=== PATIENT | female | born 1995 | race African-American/Black ===

== ENCOUNTER 2019-06-03 20:20 | Emergency (ER) | payer OTHER, SELFPAY ==
[2019-06-03 20:25] VITALS: BP 121/70; PULSE 64; RESP 16; TEMP 36.7; O2SAT 98
--- NOTE | 2019-06-03 20:46 | ED.ABDPAIN ---
HPI - Abdominal Pain General Chief Complaint: Abdominal Pain Stated Complaint: headache,abd pain, diarrhea Time Seen by Provider: 06/03/19 20:44 Source: patient and RN notes reviewed Mode of arrival: ambulatory Limitations: no limitations History of Present Illness HPI narrative: A 24 y/o female presents to the ED with diffuse ABD pain since yesterday. She reports associated N/V/D, MENESES, lt facial tingling, and lt ear ache. She states that she has had one episode of emesis yesterday and one more today. She notes that her chest and stomach feels weird . She also notes that she has taken Ibuprofen but denies it alleviating her symptoms. She also denies any fevers, cough, SOB, nasal congestion, or rhinorrhea. MD elicited complaint: abdominal pain Pertinent past history: none Onset (ago): day(s) (yesterday) Location: diffuse Relieving factors: nothing Associated symptoms: nausea, vomiting (x2), diarrhea and other (MENESES, lt facial tingling, lt ear ache, and that his stomach and chest feels weird ) Related Data Allergies Allergy/AdvReac Type Severity Reaction Status Date / Time No Known Allergies Allergy Verified 06/03/19 20:28 Review of Systems Review of Systems: All systems reviewed & are unremarkable except as noted in HPI and below Constitutional: Constitutional: Denies fever(s) ENT: Denies nasal congestion, Denies nasal discharge and Reports other (lt ear ache) Cardiovascular: Cardiovascular: Reports other (chest feels weird ) Respiratory: Respiratory: Denies cough and Denies dyspnea Gastrointestinal: Gastrointestinal: Reports abdominal pain (diffuse), Reports diarrhea, Reports nausea, Reports vomiting (x2.) and Reports other (stomach feels weird ) Neurologic: Reports headache(s) and Reports tingling (lt facial) [facility] Past Medical History Medical History (Updated 06/04/19 @ 00:00 by Stephen Wang) Anemia Chauhan's palsy Cholelithiasis Gall stones Surgical History Surgical History History of cholecystectomy Social History Social History Smoking packs per day: 1 Smoking cigarettes per day: 20.0 Years smoked: 2 Smoking pack-years: 2.00 Smoking status: Current every day smoker Tobacco type: cigarettes Additional occupation/education comments: 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 Gender identity (if verbalized by the patient): Female Exam Const: General: healthy appearing and no acute distress Nutritional Appearance: obese HENMT: Mouth: Yes lip normal and Yes moist mucous membranes Eyes: Conjunctivae: conjunctivae normal Pupils: Equal, round and reactive pupils present Resp: Effort & Inspection: normal respiratory effort Auscultation: clear to auscultation bilaterally Cardio: Rate: regular rate Rhythm: regular rhythm Heart sounds: no murmurs GI: GI Palp: Yes Soft to palpation and No Tenderness to palpation present (GI) Auscultation: normal bowel sounds Back/Spine/Pelvis: Other: Full ROM. Skin: General skin exam: normal color, dry skin and other (warm) Neuro: General: patient oriented x3 (alert) Speech: normal speech Extrem: General: full ROM Psych: Mental Status: mental status grossly normal Affect: normal affect Course Vital Signs Vital signs: Vital Signs Temperature 36.7 C 06/03/19 20:25 Pulse Rate 64 06/03/19 20:25 Respiratory Rate 16 06/03/19 20:25 Blood Pressure 121/70 06/03/19 20:25 Pulse Oximetry 98 06/03/19 20:25 Temperature 36.7 C 06/03/19 20:25 Pulse Rate 64 06/03/19 20:25 Respiratory Rate 16 06/03/19 20:25 Blood Pressure 121/70 06/03/19 20:25 Pulse Oximetry 98 06/03/19 20:25 MDM - Abdominal Pain Medical Records Attestation: I reviewed the patient's medical records. Lab Data Attestation: I reviewed the patient's lab results. Labs: Influenza A Screen Negative Refe
--- NOTE | 2019-06-03 21:26 | PC.NURSE ---
Upon assessing pt she states she has being feeling strange like something isn't right. She states her head hurts all over with pressure but when she sits up it feels better, her abd & chest both feel like pressure rating the pain at a 8.
[2019-06-03] MEDS: KETOROLAC (*BKC) 60 MG/2 ML VIAL IM (21:37)
[2019-06-03] MEDS: ONDANSETRON HCL ODT 4 MG TABLET PO (21:37)
[2019-06-03] MEDS: FAMOTIDINE 20 MG TABLET PO (21:37)
== END 2019-06-03 22:32 | disposition home or self-care (01) ==
PROVIDERS: Emergency Provider Emergency Medicine
DX: J10.1 Influenza due to other identified influenza virus with other respiratory manifestations (principal); F17.210 Nicotine dependence, cigarettes, uncomplicated
CPT/HCPCS: 87804; 96372; 99283; A9270; J1885

== ENCOUNTER 2019-07-11 20:13 | Emergency (ER) | payer OTHER, SELFPAY ==
--- NOTE | ~2019-07-11 | XR_ITS ---
EXAMINATION: XR chest 2V EXAM DATE: 07/11/2019 21:05 INDICATION: Left-sided chest pain. TECHNIQUE: Frontal and lateral projections of the chest obtained and reviewed. Comparison is made to prior examination from 03/30/2019. FINDINGS: The lungs are clear. There are no pleural effusions. The cardiomediastinal silhouette is within normal limits. There is no pneumothorax suspected. The bones and soft tissues are unremarkab le. There are cholecystectomy clips. IMPRESSION: No acute cardiopulmonary findings. Reviewed, dictated and finalized at location A.
[2019-07-11 20:17] VITALS: BP 136/117; PULSE 78; RESP 20; TEMP 36.7; O2SAT 100
--- NOTE | 2019-07-11 20:26 | ECG_ITS ---
Measurements Intervals [place] Rate: 73 P: 60 [place]: 166 QRS: 47 QRSD: 81 T: 54 QT: 352 QTc: 388 Interpretive Statements SINUS RHYTHM WITH SINUS ARRHYTHMIA NORMAL ECG Electronically Signed On 07-12-2019 6:54:17 CDT by Uriel Perez D.O.
[2019-07-11 20:27] VITALS: PULSE 74
--- NOTE | 2019-07-11 20:29 | ED.CHESTPAIN ---
HPI - Chest Pain General Chief Complaint: Chest Pain Stated Complaint: chest pain Time Seen by Provider: 07/11/19 20:25 Source: patient and family Mode of arrival: ambulatory Limitations: no limitations History of Present Illness HPI narrative: Patient is a 24-year-old female who presents for evaluation of chest pain. Chest pain has been present since yesterday, described as burning in nature. It is better with rest, patient notices it more when she is awake. No worsening pain with exertion. No cough or shortness of breath. No pleuritic pain. Pain is somewhat worse with bending forward. No fever. 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 She denies any fever or chills today. She denies calf swelling, redness or pain. No history of PE. No smoking, patient is currently not on any control. I actually saw the patient in March for chest pain and her work-up was unremarkable. Patient otherwise was diagnosed with flu last month. No back pain, no current neck pain. No shoulder pain. No jaw pain. Related Data Home Medications Medication Instructions Recorded Confirmed multivitamin with iron 1 tablet PO DAILY 07/11/19 [Tab-A-Magan/Iron] Allergies Allergy/AdvReac Type Severity Reaction Status Date / Time No Known Allergies Allergy Verified 07/11/19 20:23 Review of Systems Review of Systems: Narrative: CONSTITUTIONAL: Denies fever, chills, or sweats. EYES: Denies visual changes, redness, or discharge. ENT: Denies rhinorrhea, congestion, sore throat, or otalgia. CARDIOVASCULAR: Reports chest pain, denies palpitations or edema RESPIRATORY: Denies cough or dyspnea. GASTROINTESTINAL: Denies abdominal pain, nausea, vomiting, or diarrhea. GENITOURINARY: Denies dysuria or hematuria. SKIN: Denies rash or itching. MUSCULOSKELETAL: Denies back pain, joint pain, or myalgia. NEUROLOGIC: Denies headache, numbness, or weakness. 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 Gender identity (if verbalized by the patient): Female Exam Narrative: Exam Narrative: GENERAL: Awake, alert, conversant HEAD: Normocephalic, atraumatic. EYES: PERRLA and EOMI. ENT: Nares clear, no rhinorrhea or epistaxis. Mucous membranes moist. NECK: Supple. CHEST: No respiratory distress, breathing even and non labored, chest wall tender to palpation and exactly reproduces pain HEART: Regular rate, sinus rhythm ABDOMEN:Non distended, non tender EXTREMITIES: Normal range of motion. No edema. SKIN: Warm, dry, no rash. NEURO:No focal deficits. Alert and oriented x3 Course Vital Signs Vital signs: Vital Signs Temperature 36.7 C 07/11/19 20:17 Pulse Rate 78 07/11/19 20:17 Respiratory Rate 20 07/11/19 20:17 Blood Pressure 136/117 H 07/11/19 20:17 Pulse Oximetry 100 07/11/19 20:17 Temperature 36.7 C 07/11/19 20:17 Pulse Rate 74 07/11/19 20:27 Respiratory Rate 20 07/11/19 20:17 Blood Pressure 136/117 H 07/11/19 20:17 Pulse Oximetry 100 07/11/19 20:17 MDM - Chest Pain MDM Narrative Medical decision making narrative: Patient presented for evaluation of chest pain. At the time of initial assessment, patient is not tachycardic, no hypoxemia. No respiratory distress. Chest pain is reproducible on exam. Patient's EKG and labs are without significant high risk changes. Cardiac
[2019-07-11] MEDS: ASPIRIN 81 MG CHEWABLE TABLET 324 MG PO (20:42)
[2019-07-11 21:04] LABS: Basophils Percent Auto 0.4 % (0.2-1.2); Eosinophils Absolute Auto 0.1 K/mm3 (0-0.3); Eosinophils Percent Auto 1.7 % (0-4.4); Hematocrit 36.9 % (37.0-47.0); Hemoglobin 11.2 g/dL (12.0-15.0); Immature Granulocyte Absolute 0.02 K/mm3 (0.00-0.031); Immature Granulocyte Percent A 0.3 % (0-0.5); Lymphocytes Absolute Auto 2.13 K/mm3 (0.9-3.2); Lymphocytes Percent Auto 29.5 % (18.3-44.2); Mean Corpuscular HGB Conc 30.4 g/dl (32-36); Mean Corpuscular Volume 75.9 fl (80-100); Mean Platelet Volume 9.9 fl (7.4-10.4); Monocytes Absolute Auto 0.5 K/mm3 (0.1-0.6); Monocytes Percent Auto 6.2 % (2.6-8.5); Neutrophils Absolute Auto 4.5 K/mm3 (1.3-6.7); Neutrophils Percent Auto 61.9 % (45.5-73.1); Platelet Count Result 433 k/mm3 (150-375); Red Blood Count 4.86 M/mm3 (4.2-5.4); Red Cell Distribution Width 15.7 % (11.5-14.5); White Blood Count 7.2 K/mm3 (4.5-10.0)
[2019-07-11 21:14] LABS: Partial Thromboplastin Time 25.8 SECONDS (22.3-36.8); Prothrombin Time 12.9 Seconds (11.1-14.7)
[2019-07-11 21:22] LABS: Blood Urea Nitrogen 8 mg/dL (7-17); Calcium 9.2 mg/dL (8.4-10.2); Carbon Dioxide 29 mmol/L (22-30); Chloride 103 mmol/L (98-107); Estimated CRCL calculation 162 ml/min; Estimated Glomerular Filt Rate > 60; Glucose 103 mg/dL (65-105); Potassium 3.9 mmol/L (3.4-5.0); Sodium 138 mmol/L (137-145)
[2019-07-11 21:29] LABS: Troponin I < 0.012 ng/mL (0.000-0.034)
[2019-07-11] MEDS: ACETAMINOPHEN 500 MG TABLET 1000 MG PO (21:36)
[2019-07-11] MEDS: BELLADONNA ALK/PHENOB ELIX 10 ML, MAG HYDROX/ALUMINUM HYD/SIMETH 30 ML, LIDOCAINE HCL 2... PO (21:36)
[2019-07-11 22:09] VITALS: BP 130/90; PULSE 72; RESP 20; O2SAT 100
--- NOTE | 2019-07-11 22:25 | PC.NURSE ---
pt unable to urinate aware
[2019-07-11 22:29] VITALS: BP 130/89; PULSE 83; RESP 20; O2SAT 100
== END 2019-07-11 22:32 | disposition home or self-care (01) ==
PROVIDERS: Emergency Provider Emergency Medicine
DX: R07.89 Other chest pain (principal); D64.9 Anemia, unspecified; F17.210 Nicotine dependence, cigarettes, uncomplicated
CPT/HCPCS: 36415; 71046; 80048; 84484; 85025; 85610; 85730; 93005; 99284; A9270

== ENCOUNTER 2019-09-24 00:12 | Emergency (ER) | payer OTHER, SELFPAY ==
--- NOTE | ~2019-09-24 | XR_ITS ---
EXAMINATION: XR chest 2V DATE: 09/24/2019 01:25 INDICATION: Chest pressure TECHNIQUE: PA and lateral views of the chest are obtained. COMPARISON: 07/11/2019 FINDINGS: The lungs are free of acute opacities. There is no pleural effusion or pneumothorax. The ca rdiomediastinal silhouette is normal. The visualized bones and soft tissues are unremarkable. IMPRESSION: 1. No acute cardiopulmonary abnormality. Reviewed, dictated and finalized at location A.
[2019-09-24 00:26] VITALS: BP 153/89; PULSE 101; RESP 20; TEMP 36.4; O2SAT 100
--- NOTE | 2019-09-24 00:40 | ECG_ITS ---
Measurements Intervals [place] Rate: 81 P: 6 [place]: 165 QRS: 43 QRSD: 84 T: 49 QT: 363 QTc: 423 Interpretive Statements SINUS RHYTHM NORMAL ECG Electronically Signed On 09-24-2019 7:45:37 CDT by Uriel Perez D.O.
--- NOTE | 2019-09-24 01:00 | ED.GENADULT ---
HPI - General Adult General Chief complaint: Chest Pain Stated complaint: high blood pressure Time Seen by Provider: 09/24/19 00:17 History of Present Illness HPI narrative: She reports that earlier this even she wasn't feeling right so she checked her blood pressure and it was high, about 150 systolic. She then began to feel tingling in her chest. She believes this was due to anxiety, which she has frequently. She denies, chest pain, SOB, palpitations. Related Data Home Medications Medication Instructions Recorded Confirmed multivitamin with iron 1 tablet PO DAILY 07/11/19 [Tab-A-Magan/Iron] Allergies Allergy/AdvReac Type Severity Reaction Status Date / Time No Known Allergies Allergy Verified 07/11/19 20:23 Review of Systems Review of Systems: All systems reviewed & are unremarkable except as noted in HPI and below Constitutional: Constitutional: Denies fever(s) and Denies weakness Cardiovascular: Cardiovascular: Denies chest pain Respiratory: Respiratory: Denies dyspnea Gastrointestinal: Gastrointestinal: Denies nausea and Denies vomiting Musculoskeletal: Musculoskeletal: Denies back pain [facility] Past Medical History Medical History Anemia Chauhan's palsy Cholelithiasis Gall stones Surgical History Surgical History History of cholecystectomy Social History Social History Smoking packs per day: 1 Smoking cigarettes per day: 20.0 Years smoked: 2 Smoking pack-years: 2.00 Smoking status: Current every day smoker Tobacco type: cigarettes Additional occupation/education comments: 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 Gender identity (if verbalized by the patient): Female Exam Const: General: healthy appearing, no acute distress and alert Nutritional Appearance: obese Orientation/consciousness: patient oriented x3 HENMT: Head: normal to inspection Neck: Neck: normal visual inspection and no lymphadenopathy Chest: Chest palpation & inspection: no tenderness Resp: Effort & Inspection: normal respiratory effort Auscultation: clear to auscultation bilaterally, no rales, no rhonchi and no wheezes Cardio: Jugular venous distension: no JVD Rate: regular rate Rhythm: regular rhythm Heart sounds: no murmurs GI: Inspection: non-distended GI Palp: Yes Soft to palpation and No Tenderness to palpation present (GI) Skin: General skin exam: normal color Neuro: General: patient oriented x3 and moves all extremities Speech: normal speech Extrem: General: no edema Psych: Appearance: well kempt Affect: normal affect Course Vital Signs Vital signs: Vital Signs Temperature 36.4 C 09/24/19 00:26 Pulse Rate 101 H 09/24/19 00:26 Respiratory Rate 20 09/24/19 00:26 Blood Pressure 153/89 H 09/24/19 00:26 Pulse Oximetry 100 09/24/19 00:26 Temperature 36.4 C 09/24/19 00:26 Pulse Rate 82 09/24/19 02:48 Respiratory Rate 18 09/24/19 02:48 Blood Pressure 141/91 H 09/24/19 02:48 Pulse Oximetry 100 09/24/19 02:48 Medical Decision Making MDM Narrative Medical decision making narrative: She had mildly elevated BP with no sign of end organ damage. I discussed starting treatment versus following up with her PCP for recheck. She chose to follow-up Medical Records Medical records reviewed: Yes I reviewed the patient's medical records. Vital Signs Vital Signs: Vital Signs Temperature 36.4 C 09/24/19 00:26 Pulse Rate 101 H 09/24/19 00:26 Respiratory Rate 20 09/24/19 00:26 Blood Pressure 153/89 H 09/24/19 00:26 Pulse Oximetry 100 09/24/19 00:26 Temperature 36.4 C 09/24/19 00:26 Pulse Rate 82 09/24/19 02:48 Respiratory Rate 18 09/24/19 02:48 Blood Pressure 141/91 H 09/24/19 02:48 Pulse Oximetry 100 09/24/19 02:48
[2019-09-24 01:03] VITALS: BP 130/92; PULSE 84; RESP 20; O2SAT 100
[2019-09-24] MEDS: ASPIRIN 81 MG CHEWABLE TABLET 324 MG PO (01:06)
--- NOTE | 2019-09-24 01:11 | PC.NURSE ---
Pt states her chest is not so much pain just pressure in the middle. Pt also stated to this nurse and MD that anxiety is not her friend.
[2019-09-24 01:18] VITALS: PULSE 84
[2019-09-24 02:30] VITALS: BP 135/76; PULSE 100; RESP 18; O2SAT 99
[2019-09-24 02:48] VITALS: BP 141/91; PULSE 82; RESP 18; O2SAT 100
== END 2019-09-24 02:45 | disposition home or self-care (01) ==
PROVIDERS: Emergency Provider Emergency Medicine; PCP Physician Assistant
DX: I10 Essential (primary) hypertension (principal); F17.210 Nicotine dependence, cigarettes, uncomplicated; Z86.2 Personal history of diseases of the blood and blood-forming organs and certain disorders involving the immune mechanism
CPT/HCPCS: 71046; 93005; 99284; A9270

== ENCOUNTER 2020-04-17 14:01 | Emergency (ER) | payer OTHER, SELFPAY ==
--- NOTE | ~2020-04-17 | CT_ITS ---
EXAMINATION: CTA chest PE protocol DATE: 04/17/2020 16:09 INDICATION: Shortness of breath TECHNIQUE: Computed tomography angiography (CTA) of the chest was performed with 100 mL Omnipaque-350 intravenous contrast timed to evaluate the pulmonary arteries. Coronal maximum intensity projection 3D-reconstructions were created by the technologist. The dose-length product (DLP) was 968.10 mGy-cm. Automated exposure control and iterative reconstruction technique were employed. COMPARISON: None. FINDINGS: The pulmonary arteries are well-opacified. No pulmonary embolism is identified. The lungs a re free of acute opacities. There is no pleural effusion or pneumothorax. No pathologically enlarged thoracic lymph nodes are identified. The heart size is normal. Triangular soft tissue density in the anterior mediastinum is consistent with residual thymus. The visualized osseous structures are unrema rkable. The gallbladder is surgically absent. A 2.3 cm fluid attenuation lesion of the spleen with pe ripheral calcification likely reflects a cyst, hemangioma, or lymphangioma. IMPRESSION: 1. No pulmonary embolism or acute cardiopulmonary abnormality. Reviewed, dictated and finalized at location A. RTISING SALES REPRESENTATIVE
--- NOTE | ~2020-04-17 | XR_ITS ---
EXAMINATION: XR chest 1V portable DATE: 04/17/2020 14:45 INDICATION: Shortness of breath. Cough. Nausea. TECHNIQUE: A single frontal view of the chest was obtained. COMPARISON: Chest 2 views 09/24/2019 FINDINGS: The chest demonstrates clear lungs without pneumonia, pleural effusion, or pneumothorax. Th e heart size is normal. IMPRESSION: 1. No acute cardiopulmonary disease. Reviewed, dictated and finalized at location A. HING MACHINE ENGINEER
[2020-04-17 14:03] VITALS: BP 142/99; PULSE 79; RESP 20; TEMP 36.2; O2SAT 100
--- NOTE | 2020-04-17 14:56 | ED.GENADULT ---
HPI - General Adult General Chief complaint: Upper Respiratory Infection Stated complaint: sob Time Seen by Provider: 04/17/20 14:11 Source: patient Mode of arrival: ambulatory Limitations: no limitations History of Present Illness HPI narrative: Patient presents with chief complaint of feeling short of breath and the pain with inspiration today while working. Patient states that she works at the [employer] and informed her staff about her symptoms and she was instructed to come to the emergency department. They swabbed her for Covid but she has not yet received her results. Patient states she has had occasional cough that is nonproductive and is not regular. She states she has not had any fever, chills, nausea, vomiting. She reports being tested twice a week for Covid at her facility. She has not tested positive. Patient is on estrogen control and states that she recently stopped smoking. Patient denies having chest pain or palpitations. Patient denies wheezing. She states that she feels as if she has to remind herself and actively work to take a deep breath. She denies a history of COPD or asthma. Patient states that she has been working a lot recently and contributes her symptoms to being overworked. Related Data Home Medications Medication Instructions Recorded Confirmed No Home Medications 04/17/20 04/17/20 Allergies Allergy/AdvReac Type Severity Reaction Status Date / Time No Known Allergies Allergy Verified 04/17/20 14:06 Review of Systems Review of Systems: Narrative: CONSTITUTIONAL: Denies fever, chills, or sweats. EYES: Denies visual changes, redness, or discharge. ENT: Denies rhinorrhea, congestion, sore throat, or otalgia. CARDIOVASCULAR: Denies chest pain, palpitations, or edema. RESPIRATORY: Reports occasional cough and discomfort with inspiration GASTROINTESTINAL: Denies abdominal pain, nausea, vomiting, or diarrhea. GENITOURINARY: Denies dysuria or hematuria. SKIN: Denies rash or itching. MUSCULOSKELETAL: Denies back pain, joint pain, or myalgia. NEUROLOGIC: Denies headache, numbness, dizziness, or weakness. PSYCHIATRIC: Denies anxiety or depression. 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 Gender identity (if verbalized by the patient): Female Exam Narrative: Exam Narrative: GENERAL: Well-appearing, well-nourished, and in no acute distress. HEAD: Normocephalic, atraumatic. EYES: PERRLA and EOMI. NECK: Supple. No adenopathy or masses. CHEST: Clear to auscultation. No respiratory distress. No wheezes rales or rhonchi. No tachypnea. No dyspnea with speech. HEART: Regular rate and rhythm. No murmur heard. Normal peripheral pulses. EXTREMITIES: Normal range of motion. No edema. No calf pain or discrepancies appreciated. SKIN: Warm, dry, no rash. NEURO: No focal deficits. Alert and oriented x3. PSYCH: Normal mood and affect. Course Vital Signs Vital signs: Vital Signs Temperature 97.1 F L 04/17/20 14:03 Pulse Rate 79 04/17/20 14:03 Respiratory Rate 20 04/17/20 14:03 Blood Pressure 142/99 H 04/17/20 14:03 Pulse Oximetry 100 04/17/20 14:03 Temperature 97.1 F L 04/17/20 14:03 Pulse Rate 78 04/17/20 18:56 Respiratory Rate 16 04/17/20 18:56 Blood Pressure 156/76 H 04/17/20 18:56 Pulse Oximetry 100 04/17/20 18:56 Medical [place]
[2020-04-17 15:10] LABS: Add Urine Microscopic? YES; Appearance Urine Cloudy (Clear); Bacteria Urine Trace /hpf; Bilirubin Urine Negative (Negative); Blood Urine Negative (Negative); Color Urine Yellow (Yellow); Glucose Urine UA Negative (Negative); Ketones Urine Negative (Negative); Leukocyte Esterase Ur 1+ LEU/UL (Negative); Mucus Urine Heavy /lpf; Nitrate Urine Negative (Negative); Protein Urine 2+ mg/dL (Negative); RBC Urine 0-2 /hpf (0-2); Specific Grav Ur 1.029 (1.001-1.035); Squamous Epithelial Cell Urine Many /hpf (Few); WBC Urine 0-3 /hpf
[2020-04-17 15:19] LABS: Basophils Percent Auto 0.3 % (0.2-1.2); Eosinophils Absolute Auto 0.1 K/mm3 (0-0.3); Eosinophils Percent Auto 1.1 % (0-4.4); Hematocrit 31.9 % (37.0-47.0); Hemoglobin 9.4 g/dL (12.0-15.0); Immature Granulocyte Absolute 0.02 K/mm3 (0.00-0.031); Immature Granulocyte Percent A 0.3 % (0-0.5); Lymphocytes Absolute Auto 1.72 K/mm3 (0.9-3.2); Lymphocytes Percent Auto 26.8 % (18.3-44.2); Mean Corpuscular HGB Conc 29.5 g/dl (32-36); Mean Corpuscular Hemoglobin 21.5 pg (26-34); Mean Corpuscular Volume 72.8 fl (80-100); Mean Platelet Volume 10.2 fl (7.4-10.4); Monocytes Absolute Auto 0.5 K/mm3 (0.1-0.6); Monocytes Percent Auto 7.3 % (2.6-8.5); Neutrophils Absolute Auto 4.1 K/mm3 (1.3-6.7); Neutrophils Percent Auto 64.2 % (45.5-73.1); Platelet Count Result 440 k/mm3 (150-375); Red Blood Count 4.38 M/mm3 (4.2-5.4); Red Cell Distribution Width 15.6 % (11.5-14.5); White Blood Count 6.4 K/mm3 (4.5-10.0)
[2020-04-17 15:23] VITALS: BP 144/78; PULSE 81; RESP 19; O2SAT 100
[2020-04-17] MEDS: ONDANSETRON HCL ODT 4 MG TABLET PO (15:23)
[2020-04-17 15:31] LABS: D Dimer 0.65 ug/mL (<0.48)
[2020-04-17 15:34] LABS: Alanine Aminotransferase 15 U/L (4-35); Albumin Level 3.9 g/dL (3.5-5.1); Alkaline Phosphatase 51 U/L (38-126); Anion Gap 4 mmol/L (8-16); Aspartate Amino Transferase 26 U/L (14-36); Bilirubin,Total 0.2 mg/dL (0.2-1.3); Blood Urea Nitrogen 7 mg/dL (7-17); Calcium 8.8 mg/dL (8.4-10.2); Carbon Dioxide 28 mmol/L (22-30); Chloride 107 mmol/L (98-107); Estimated CRCL calculation 187 ml/min; Estimated Glomerular Filt Rate > 60; Glucose 83 mg/dL (65-105); Potassium 4.2 mmol/L (3.4-5.0); Sodium 139 mmol/L (137-145)
--- NOTE | 2020-04-17 15:36 | ECG_ITS ---
Measurements Intervals [place] Rate: 60 P: 8 [place]: 152 QRS: 41 QRSD: 86 T: 55 QT: 374 QTc: 375 Interpretive Statements SINUS RHYTHM BASELINE ARTIFACT- I, II, III, AVR, AVL, AVF NORMAL ECG Electronically Signed On 04-17-2020 15:49:21 [employer] by Uriel Perez D.O.
--- NOTE | 2020-04-17 15:37 | PC.NURSE ---
1515-upon entering room patient appeared to be labored breathing. Pt c/o nausea. Pt moved to room 19 placed on electronic device monitor. Meme DALEY notified. Orders received and carried out. Lungs remain CTA
[2020-04-17 15:41] LABS: Anisocytosis 2+ (NORMAL); Hypochromasia 1+ (NORMAL)
[2020-04-17 16:19] VITALS: BP 130/84; BP 142/71; BP 152/78; PULSE 72; PULSE 78; PULSE 88
[2020-04-17] MEDS: SODIUM CHLORIDE 0.9% IV 1,000 ML 999 ML IV CONT (16:49)
[2020-04-17 18:56] VITALS: BP 156/76; PULSE 78; RESP 16; O2SAT 100
[2020-04-17 19:22] VITALS: BP 143/66; PULSE 82; RESP 17; O2SAT 97
== END 2020-04-17 19:22 | disposition home or self-care (01) ==
PROVIDERS: Physician Assistant; Emergency Provider General Practice; PCP Physician Assistant
DX: R06.00 Dyspnea, unspecified (principal); D64.9 Anemia, unspecified; F17.210 Nicotine dependence, cigarettes, uncomplicated
CPT/HCPCS: 36415; 71045; 71275; 80053; 81001; 81025; 85025; 85380; 93005; 96360; 96361; 99284; A9270; J7030; Q9967

== ENCOUNTER 2020-10-29 21:17 | Emergency (ER) | payer OTHER, SELFPAY ==
--- NOTE | ~2020-10-29 | XR_ITS ---
XR chest 2V DATE: 10/29/2020 22:06 INDICATION: Left chest pain TECHNIQUE: PA and lateral views COMPARISON: 04/27/2020 portable AP chest FINDINGS: The normal heart size. No hilar or mediastinal enlargement. No pulmonary infiltrate or cons olidation, pleural effusion or pulmonary congestion or pneumothorax. IMPRESSION: No active cardiopulmonary disease Reviewed, dictated and finalized at location A.
[2020-10-29 21:21] VITALS: BP 131/112; PULSE 94; RESP 16; TEMP 36.3; O2SAT 100
--- NOTE | 2020-10-29 21:23 | ECG_ITS ---
Measurements Intervals [place] Rate: 81 P: 4 [place]: 175 QRS: 48 QRSD: 81 T: 43 QT: 356 QTc: 415 Interpretive Statements SINUS RHYTHM NORMAL ECG Electronically Signed On 10-30-2020 6:47:04 CDT by Uriel Perez D.O.
[2020-10-29 22:30] LABS: Add Urine Microscopic? YES; Appearance Urine Clear (Clear); Bilirubin Urine Negative (Negative); Blood Urine 2+ (Negative); Color Urine Yellow (Yellow); Glucose Urine UA Negative (Negative); Ketones Urine Negative (Negative); Leukocyte Esterase Ur Trace LEU/UL (Negative); Mucus Urine Rare /lpf; Nitrate Urine Negative (Negative); Protein Urine Negative (Negative); Specific Grav Ur 1.024 (1.001-1.035); Squamous Epithelial Cell Urine Occasional /hpf (Few); Urobilinogen Urine Negative mg/dL (<2.0); WBC Urine 16-20 /hpf
[2020-10-30 01:02] VITALS: BP 134/80; PULSE 88; RESP 18; TEMP 36.7; O2SAT 100
--- NOTE | 2020-10-30 01:10 | ED.CHESTPAIN ---
HPI - Chest Pain General Chief Complaint: Chest Pain Stated Complaint: chest pain, nausea, vaginal pain Time Seen by Provider: 10/30/20 01:08 Source: patient Mode of arrival: ambulatory Limitations: no limitations History of Present Illness HPI narrative: Patient is a 25-year-old female complaining of chest pain, substernal, burning, 6 out of 10, nonradiating accompanied by nausea that started today. Patient also complaining of dysuria and vaginal pain for the past few days. Patient denies any shortness of breath, abdominal pain, vomiting, diarrhea, fever or chills. Related Data Allergies Allergy/AdvReac Type Severity Reaction Status Date / Time No Known Allergies Allergy Verified 10/30/20 01:22 Review of Systems Review of Systems: All systems reviewed & are unremarkable except as noted in HPI and below Constitutional: Constitutional: Denies body ache(s), Denies chills, Denies excessive sweating, Denies fatigue, Denies fever(s), Denies headache(s), Denies lethargy, Denies malaise, Denies weakness and Denies weight loss Eyes: Eyes: Denies blurry vision, Denies change in vision and Denies loss of vision ENT: Denies dizziness, Denies ear discharge, Denies headache(s), Denies lip swelling, Denies epistaxis, Denies nasal congestion, Denies neck pain, Denies throat swelling and Denies tongue swelling Cardiovascular: Cardiovascular: Denies chest pain with activity, Denies diaphoresis, Denies rapid heart rate, Denies edema, Denies irregular heart rhythm, Denies lightheadedness, Denies palpitations, Denies dyspnea and Denies dyspnea on exertion Respiratory: Respiratory: Denies chest congestion, Denies cough, Denies hemoptysis, Denies dyspnea and Denies dyspnea on exertion Gastrointestinal: Gastrointestinal: Denies abdominal pain, Denies melena, Denies hematochezia, Denies diarrhea, Denies nausea, Denies vomiting and Denies hematemesis Musculoskeletal: Musculoskeletal: Denies abnormal gait, Denies deformity, Denies joint swelling, Denies limited range of motion, Denies neck pain and Denies numbness Neurologic: Denies Abnormal speech present, Denies abnormal gait, Denies confusion, Denies dizziness, Denies headache(s), Denies focal weakness, Denies loss of vision, Denies numbness, Denies Other visual disturbances, Denies Sensory deficit (Neuro) and Denies weakness Psychiatric: Psychiatric: Denies confusion, Denies depression, Denies auditory hallucinations, Denies homicidal ideation and Denies suicidal ideation Endocrine: Endocrine: Denies cold intolerance, Denies excessive sweating, Denies fatigue, Denies heat intolerance and Denies palpitations Hematologic/Lymphatic: Hematologic/Lymphatic: Denies easy bleeding and Denies easy bruising Allergic/Immunologic: Allergic/Immunologic: Denies lip swelling, Denies throat swelling and Denies tongue swelling PMFSH Past Medical History Medical History (Updated 10/30/20 @ 02:41 by Girish Georges MD) Anemia Chauhan's palsy Cholelithiasis Gall stones Surgical History Surgical History History of cholecystectomy Social History Social History Smoking packs per day: 1 Smoking cigarettes per day: 20.0 Years smoked: 2 Smoking pack-years: 2.00 Smoking status: Current every day smoker Tobacco type: cigarettes Additional occupation/education comments: 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 Gender identity (if verbalized by the patient): Female Exam Const: General: cooperative, comfortable, no acute distress, well developed, alert and awake; No confusion Nutritional Appearance: obese Orientation/consciousness: oriented to person, oriented to place, oriented to time, patient oriented x3 and No confusion Limitations: no limitations HENMT: Head: normal to inspection, normocephalic and atraumatic Ears: hearing grossly normal bilater
[2020-10-30 01:44] LABS: Basophils Percent Auto 0.4 % (0.2-1.2); Eosinophils Absolute Auto 0.1 K/mm3 (0-0.3); Eosinophils Percent Auto 1.1 % (0-4.4); Hematocrit 37.7 % (37.0-47.0); Hemoglobin 11.5 g/dL (12.0-15.0); Immature Granulocyte Absolute 0.03 K/mm3 (0.00-0.031); Immature Granulocyte Percent A 0.4 % (0-0.5); Lymphocytes Absolute Auto 2.17 K/mm3 (0.9-3.2); Lymphocytes Percent Auto 25.4 % (18.3-44.2); Mean Corpuscular HGB Conc 30.5 g/dl (32-36); Mean Corpuscular Hemoglobin 25.2 pg (26-34); Mean Corpuscular Volume 82.7 fl (80-100); Monocytes Absolute Auto 0.6 K/mm3 (0.1-0.6); Monocytes Percent Auto 6.5 % (2.6-8.5); Neutrophils Absolute Auto 5.7 K/mm3 (1.3-6.7); Neutrophils Percent Auto 66.2 % (45.5-73.1); Platelet Count Result 350 k/mm3 (150-375); Red Blood Count 4.56 M/mm3 (4.2-5.4); Red Cell Distribution Width 15.1 % (11.5-14.5); White Blood Count 8.6 K/mm3 (4.5-10.0)
[2020-10-30 02:10] LABS: INR 0.9; Prothrombin Time 12.1 Seconds (11.1-14.7)
[2020-10-30 02:11] LABS: Partial Thromboplastin Time 26.5 SECONDS (22.3-36.8)
[2020-10-30 02:12] LABS: Anion Gap 6 mmol/L (8-16); Blood Urea Nitrogen 10 mg/dL (7-17); Carbon Dioxide 23 mmol/L (22-30); Chloride 107 mmol/L (98-107); Estimated CRCL calculation 186 ml/min; Estimated Glomerular Filt Rate > 60; Glucose 82 mg/dL (65-110); Potassium 4.5 mmol/L (3.4-5.0); Sodium 136 mmol/L (137-145)
[2020-10-30 02:13] LABS: D Dimer 0.39 ug/mL (<0.48)
[2020-10-30 02:24] LABS: Troponin I < 0.012 ng/mL (0.000-0.034)
[2020-10-30 02:51] VITALS: BP 132/78; PULSE 77; RESP 18; O2SAT 100
== END 2020-10-30 02:52 | disposition home or self-care (01) ==
PROVIDERS: Emergency Medicine; Emergency Provider Emergency Medicine; PCP Physician Assistant
DX: R07.89 Other chest pain (principal); N30.01 Acute cystitis with hematuria; F17.210 Nicotine dependence, cigarettes, uncomplicated; D64.9 Anemia, unspecified
CPT/HCPCS: 36415; 71046; 80048; 81001; 81025; 84484; 85025; 85380; 85610; 85730; 87077; 87086; 87088; 87186; 93005; 99284

== ENCOUNTER 2021-02-26 12:03 | Emergency (ER) | payer OTHER, SELFPAY ==
--- NOTE | 2021-02-26 12:05 | ED.URI ---
HPI - URI/Sore Throat General Chief Complaint: Upper Respiratory Infection Stated Complaint: Sore Throat Time Seen by Provider: 02/26/21 12:15 Source: patient and RN notes reviewed Mode of arrival: ambulatory Limitations: no limitations History of Present Illness HPI Narrative: 26 year old female presents with concern for sore throat, swollen left throat. Reports symptoms started 2 days ago, reports she had a fever the first day of illness. She denies current fever, denies rhinorrhea, nasal congestion, headache, vomiting, nausea, body aches, chills, sweats. Denies known sick contacts. She has been vaccinated for Covid or flu MD elicited complaint: sore throat Related Data Home Medications Medication Instructions Recorded Confirmed norgestimate-ethinyl estradiol tablet 02/26/21 [Estarylla] Allergies Allergy/AdvReac Type Severity Reaction Status Date / Time No Known Allergies Allergy Verified 10/30/20 01:22 Review of Systems Review of Systems: CONSTITUTIONAL: Denies malaise, chills, sweats, or fever. EYES: Denies visual changes, redness, or discharge. ENT: Denies rhinorrhea, congestion, sinus pain, otalgia. Reports sore throat. CARDIOVASCULAR: Denies chest pain, palpitations, or edema. RESPIRATORY: Denies cough. Denies dyspnea. GASTROINTESTINAL: Denies abdominal pain, nausea, vomiting, diarrhea SKIN: Denies rash or itching. MUSCULOSKELETAL: Denies myalgia. NEUROLOGIC: Denies headache. 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 Gender identity (if verbalized by the patient): Female Comments At time of signature, agree with nursing past medical, surgical, social and family history. There is no relevant family history pertinent to the presenting complaint Exam Narrative: GENERAL: Well-appearing, well-nourished, and in no acute distress. HEAD: Normocephalic EYES: PERRLA, conjunctivae clear ENT: Nares clear, no discharge. Mucous membranes moist. TM pearly ferris with dull light reflex bilaterally; no tragal tenderness. Oropharynx not erythematous without lesions. Tonsils not enlarged and without exudate, no drooling, no hoarseness, no trismus, uvula midline. NECK: Supple. No lymphadenopathy CHEST: Clear to auscultation, breath sounds equal. No wheezing, rhonchi, rales, or stridor. No respiratory distress, speaks in full sentences. HEART: Regular rate and rhythm. No murmur heard. SKIN: Warm, dry, no rash. NEURO: Alert and oriented x3. PSYCH: Normal mood and affect Course Course Emergency Course: Patient is aware of diagnosis, understands and agrees to treatment plan. Anticipatory guidance given. Patient agrees to follow-up as directed and is aware of reasons to seek care at the emergency department. Portions of this record may have been created with voice recognition software Vital Signs Vital signs: Reviewed. MDM - URI/Sore Throat MDM Narrative Medical decision making narrative: Differential diagnosis considered: Stinson virus, strep pharyngitis, allergic rhinitis, upper respiratory tract infection, sinusitis, rhinosinusitis, nasopharyngitis. viral pharyngitis, otitis media, otitis externa, pneumonia, bronchitis, viral cough syndrome, viral syndrome, and influenza. Exam findings show no acute concerns or changes; patient is non-toxic appe
[2021-02-26 12:11] VITALS: BP 143/85; PULSE 89; RESP 18; TEMP 36.6; O2SAT 100
== END 2021-02-26 12:36 | disposition home or self-care (01) ==
PROVIDERS: Emergency Provider Nurse Practitioner; PCP Physician Assistant
DX: J02.9 Acute pharyngitis, unspecified (principal); D64.9 Anemia, unspecified
CPT/HCPCS: 87081; 87880; 99213; G0463

== ENCOUNTER 2022-01-22 13:45 | Emergency (ER) | payer BC, SELFPAY ==
--- NOTE | ~2022-01-22 | XR_ITS ---
XR chest 2V DATE: 01/22/2022 14:29 INDICATION: Chest pain, hypertension TECHNIQUE: PA and lateral views COMPARISON: 10/29/2020 2 view chest FINDINGS: Normal heart size. No hilar or mediastinal enlargement. No pulmonary infiltrate or consolid ation, pleural effusion or pulmonary vascular congestion or pneumothorax. IMPRESSION: Negative Reviewed, dictated and finalized at location A. LOP RAKER IMPRESSION: Negative
--- NOTE | 2022-01-22 13:47 | ECG_ITS ---
Measurements Intervals [place] Rate: 76 P: 0 NM: 157 QRS: 46 QRSD: 80 T: 47 QT: 357 QTc: 402 Interpretive Statements SINUS RHYTHM WITH SINUS ARRHYTHMIA NORMAL ECG COMPARED TO ECG 10/29/2020 21:53:11 SINUS ARRHYTHMIA NOW PRESENT Electronically Signed On 01-22-2022 14:00:19 MEDIA CLERK by Uriel Perez D.O.
[2022-01-22 13:51] VITALS: BP 147/82; PULSE 93; RESP 18; TEMP 36.8; O2SAT 100
[2022-01-22 14:09] LABS: Basophils Percent Auto 0.3 % (0.2-1.2); Eosinophils Absolute Auto 0.1 K/mm3 (0-0.3); Eosinophils Percent Auto 1.7 % (0-4.4); Hematocrit 39.9 % (37.0-47.0); Hemoglobin 12.9 g/dL (12.0-15.0); Immature Granulocyte Absolute 0.03 K/mm3 (0.00-0.031); Immature Granulocyte Percent A 0.4 % (0-0.5); Lymphocytes Absolute Auto 1.71 K/mm3 (0.9-3.2); Lymphocytes Percent Auto 24.7 % (18.3-44.2); Mean Corpuscular HGB Conc 32.3 g/dl (32-36); Mean Corpuscular Hemoglobin 26.8 pg (26-34); Mean Platelet Volume 9.6 fl (7.4-10.4); Monocytes Absolute Auto 0.5 K/mm3 (0.1-0.6); Monocytes Percent Auto 6.8 % (2.6-8.5); Neutrophils Absolute Auto 4.6 K/mm3 (1.3-6.7); Neutrophils Percent Auto 66.1 % (45.5-73.1); Platelet Count Result 379 k/mm3 (150-375); Red Blood Count 4.81 M/mm3 (4.2-5.4); Red Cell Distribution Width 13.4 % (11.5-14.5); White Blood Count 6.9 K/mm3 (4.5-10.0)
[2022-01-22 14:22] LABS: INR 1.1; Prothrombin Time 13.4 Seconds (11.1-14.7)
[2022-01-22 14:23] LABS: Partial Thromboplastin Time 27.3 SECONDS (22.3-36.8)
[2022-01-22 14:34] LABS: Alanine Aminotransferase 23 U/L (6-35); Albumin Level 4.1 g/dL (3.5-5.1); Alkaline Phosphatase 62 U/L (38-126); Anion Gap 8 mmol/L (8-16); Aspartate Amino Transferase 26 U/L (14-36); Bilirubin,Total 0.3 mg/dL (0.2-1.3); Blood Urea Nitrogen 10 mg/dL (7-17); Calcium 8.9 mg/dL (8.4-10.2); Carbon Dioxide 26 mmol/L (22-30); Chloride 104 mmol/L (98-107); Estimated CRCL calculation 195 ml/min; Estimated Glomerular Filt Rate > 60; Glucose 81 mg/dL (65-110); Lipase 65 U/L (23-300); Sodium 138 mmol/L (137-145)
[2022-01-22 14:43] LABS: Troponin I < 0.012 ng/mL (0.000-0.034)
--- NOTE | 2022-01-22 17:15 | ED.CHESTPAIN ---
HPI - Chest Pain General Chief Complaint: Chest Pain Stated Complaint: CP Time Seen by Provider: 01/22/22 17:04 History of Present Illness HPI narrative: Patient is a 26-year-old female here for evaluation of epigastric discomfort for the past 6 hours. Patient states that she was seated, at work, when she developed the pain. States it is sharp and stabbing in nature, also present in her upper back. Patient thought her bra was too tight, she took off her bra but reported continued pain. She works in a prison, was given aspirin and famotidine with continued pain. Also notes her blood pressure was in the 160s systolic. Patient states that her pain has been constant since then, worse with deep breaths. Also associated with some nausea which is since resolved without intervention. She denies any shortness of breath at rest, exertional component of pain, cardiac history. No leg swelling, fevers or chills, diarrhea or constipation, cough/hemoptysis. She was sick with upper respiratory infectious type symptoms last week which resolved. She does take control pills. Related Data Allergies Allergy/AdvReac Type Severity Reaction Status Date / Time No Known Allergies Allergy Verified 01/22/22 17:28 Review of Systems Review of Systems: Gen.: Denies fevers or chills Eyes: Denies eye pain or visual change ENT: Denies congestion Respiratory: Denies shortness of breath or cough CV: Reports chest pain. GI: Denies abdominal pain nausea, emesis or diarrhea denies burning, urgency, frequency or hematuria Musculoskeletal: Denies back pain or muscle pain Neuro: Denies numbness, tingling, weakness or focal weakness Skin: Denies rash Except as documented, all other systems reviewed and negative [facility] Past Medical History Medical History Anemia Chauhan's palsy Cholelithiasis Gall stones Obesity Surgical History Surgical History History of cholecystectomy Family History Family History Sibling Leukemia Mother Hypertension Depression Grandparent Diabetes mellitus maternal grandparent Hypertension Depression Cerebrovascular accident Father Alcoholism Heart disease Thyroid disease Social History Social History Smoking packs per day: 1 Smoking cigarettes per day: 20.0 Years smoked: 2 Smoking pack-years: 2.00 Smoking status: Former smoker Tobacco type: cigarettes Smoking end date: 03/09/18 Alcohol intake: current Drinks per week: 2 Alcohol use details: occasionnally Substance use: former Substance use type: marijuana Other substance usage details: very ocassional Lack of Transportation: No Lack of Food: Never True Current Housing: I Have Housing Concerned About Future Housing: No Difficulty Paying Gas/Electric Bills: No Difficulty Paying for Meds: No Currently Unemployed: No Education: High School Diploma/GED Difficulty w/ Childcare or Family Care: No Additional living arrangements comments: Engaged/ same sex partner 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 Head: Normocephalic and atraumatic. EYES: PERRLA/EOMI, conjunctivae clear NOSE: No nasal drainage EARS: External ear normal in appearance THROAT: Oropharynx is clear. Mucous membranes are moist. NECK: Supple. No adenopathy, no masses. RESPIRATORY: Airway patent, respirations nonlabored. Clear to auscultation bilaterally, no rales, rhonchi, wheezing. CARDIOVASCULAR: Regular rate and rhythm without murmu
[2022-01-22] MEDS: MAG HYDROX/AL HYDROX/SIMETH 30 ML UDC PO (17:28)
[2022-01-22 17:31] LABS: D Dimer 0.46 ug/mL (<0.48)
== END 2022-01-22 17:58 | disposition home or self-care (01) ==
PROVIDERS: Physician Assistant; Emergency Provider Emergency Medicine; PCP Family Medicine
DX: R07.89 Other chest pain (principal)
CPT/HCPCS: 36415; 71046; 80053; 83690; 84484; 85025; 85380; 85610; 85730; 93005; 99284; A9270

== ENCOUNTER 2022-12-06 19:16 | Emergency (ER) | payer BC, OTHER, SELFPAY ==
--- NOTE | ~2022-12-06 | CT_ITS ---
EXAMINATION: CT abdomen pelvis w con INDICATION: Abdominal pain TECHNIQUE: Computed tomographic images of the abdomen and pelvis were obtained after the administrati on of 100 cc of Omnipaque 350 intravenous contrast. The dose-length product (DLP) was 1631.94 mGy-cm. Automated exposure control and iterative reconstruction technique were employed. COMPARISON: 05/14/2015 FINDINGS: The lung bases are clear. The heart size is normal. The gallbladder is surgically absent. T here is mild enlargement of the common bile duct and central intrahepatic ducts which is likely due t o post cholecystectomy state. 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 The liver , pancreas, and adrenal glands are normal. The right kidney is unremarkable. There is a 3 mm cyst of the left kidney. No pathologically enlarged abdominal or pelvic lymph nodes are identified. No free i ntraperitoneal gas or evidence of bowel obstruction. The appendix is normal. IMPRESSION: 1. No CT correlate for the patient's symptoms. Reviewed, dictated and finalized at location F.
[2022-12-06 19:26] VITALS: BP 163/105; PULSE 89; RESP 20; TEMP 36; O2SAT 100
[2022-12-06 19:41] LABS: Basophils Percent Auto 0.3 % (0.2-1.2); Eosinophils Absolute Auto 0.2 K/mm3 (0-0.3); Eosinophils Percent Auto 3.4 % (0-4.4); Hematocrit 42.3 % (37.0-47.0); Hemoglobin 13.4 g/dL (12.0-15.0); Immature Granulocyte Absolute 0.02 K/mm3 (0.00-0.031); Immature Granulocyte Percent A 0.3 % (0-0.5); Lymphocytes Absolute Auto 1.69 K/mm3 (0.9-3.2); Lymphocytes Percent Auto 27.6 % (18.3-44.2); Mean Corpuscular HGB Conc 31.7 g/dl (32-36); Mean Corpuscular Hemoglobin 27.3 pg (26-34); Mean Corpuscular Volume 86.2 fl (80-100); Mean Platelet Volume 9.8 fl (7.4-10.4); Monocytes Absolute Auto 0.4 K/mm3 (0.1-0.6); Monocytes Percent Auto 7.2 % (2.6-8.5); Neutrophils Absolute Auto 3.8 K/mm3 (1.3-6.7); Neutrophils Percent Auto 61.2 % (45.5-73.1); Platelet Count Result 329 k/mm3 (150-375); Red Blood Count 4.91 M/mm3 (4.2-5.4); Red Cell Distribution Width 13.9 % (11.5-14.5); White Blood Count 6.1 K/mm3 (4.5-10.0)
[2022-12-06 19:52] LABS: Alanine Aminotransferase 27 U/L (6-35); Albumin Level 4.2 g/dL (3.5-5.1); Alkaline Phosphatase 56 U/L (38-126); Anion Gap 7 mmol/L (8-16); Aspartate Amino Transferase 36 U/L (14-36); Bilirubin,Total 0.4 mg/dL (0.2-1.3); Blood Urea Nitrogen 7 mg/dL (7-17); Calcium 9.1 mg/dL (8.4-10.2); Carbon Dioxide 26 mmol/L (22-30); Chloride 104 mmol/L (98-107); Estimated CRCL calculation 223 ml/min; Estimated Glomerular Filt Rate > 60; Glucose 163 mg/dL (65-110); Lipase 70 U/L (23-300); Potassium 3.8 mmol/L (3.4-5.0); Sodium 137 mmol/L (137-145)
[2022-12-06 21:47] LABS: Appearance Urine Cloudy (Clear); Bacteria Urine 1+ /hpf; Bilirubin Urine Negative (Negative); Blood Urine Negative (Negative); Color Urine Yellow (Yellow); Glucose Urine UA Negative (Negative); Ketones Urine Negative (Negative); Leukocyte Esterase Ur Trace LEU/UL (Negative); Nitrate Urine Negative (Negative); Non Pathogenic Casts 0-2; Protein Urine Negative (Negative); RBC Urine 0-2 /hpf (0-2); Specific Grav Ur 1.028 (1.001-1.035); Squamous Epithelial Cell Urine Moderate /hpf (Few)
[2022-12-06 21:54] LABS: Add Urine Microscopic? YES
[2022-12-06 22:18] VITALS: BP 118/71; PULSE 86; RESP 18; O2SAT 100
--- NOTE | 2022-12-06 23:19 | PC.NURSE ---
Report given to SENAIT Kenney. Care of pt transferred, no questions/concerns.
--- NOTE | 2022-12-06 23:20 | ED.ABDPAIN ---
HPI - Abdominal Pain General Chief Complaint: Abdominal Pain Stated Complaint: epigastric pain, N/V/D Time Seen by Provider: 12/06/22 22:00 Source: patient Mode of arrival: ambulatory Limitations: no limitations History of Present Illness HPI narrative: Patient is a 27-year-old female with past medical history of cholecystectomy, who presents to the ED with report of upper abdominal pain. Patient reports she developed pain across her upper abdomen yesterday morning. Pain has been fairly constant since then, worse with eating or drink anything. Patient notes Hx of GERD and tried taking TUMS and Pepto Bismol without improvement. She has not tried anything further for pain. She reports nausea, vomiting, diarrhea. Denies rectal bleeding, melena, urinary sx's, fevers, CP, SOB. Related Data Allergies Allergy/AdvReac Type Severity Reaction Status Date / Time No Known Allergies Allergy Verified 11/12/22 14:03 Review of Systems Review of Systems: CONSTITUTIONAL: Denies fever, chills, or sweats. CARDIOVASCULAR: Denies chest pain. RESPIRATORY: Denies dyspnea. GASTROINTESTINAL: See HPI. GENITOURINARY: Denies dysuria or hematuria. SKIN: Denies rash or itching. MUSCULOSKELETAL: Denies back pain, joint pain, or myalgia. All systems reviewed & are unremarkable except as noted in HPI and below PMFSH Past Medical History Medical History Anemia Anxiety and depression Chauhan's palsy Cholelithiasis Gall stones Obesity Surgical History Surgical History History of cholecystectomy (~2013) Family History Family History Sibling Leukemia Mother Hypertension Depression Grandparent Diabetes mellitus maternal grandparent Hypertension Depression Cerebrovascular accident Father Alcoholism Heart disease Thyroid disease Social History Social History Smoking packs per day: 1 Smoking cigarettes per day: 20.0 Years smoked: 2 Smoking pack-years: 2.00 Smoking status: Former smoker Tobacco type: cigarettes Smoking end date: 03/09/18 Alcohol intake: current Alcohol use details: occasionnally 2 per month Substance use: current Substance use type: marijuana Other substance usage details: very ocassional Lack of Transportation: No Lack of Food: Never True Current Housing: I Have Housing Concerned About Future Housing: No Difficulty Paying Gas/Electric Bills: No Difficulty Paying for Meds: No Currently Unemployed: No Education: High School Diploma/GED Difficulty w/ Childcare or Family Care: No Living arrangements: with family Additional living arrangements comments: Engaged/ same sex partner Occupation/Education: unemployed Gender identity (if verbalized by the patient): Female Sexual Orientation (if Verbalized by the Patient): Lesbian, Alexis, or Homosexual Agree to blood products: Yes Exam Narrative: GENERAL: Well appearing, morbidly obese with BMI of 57.9, non-toxic, in no acute distress. HEAD: Normocephalic, atraumatic. NECK: Supple. No adenopathy, no masses. RESPIRATORY: Airway patent, respirations nonlabored. Clear to auscultation bilaterally, no rales, rhonchi, wheezing. CARDIOVASCULAR: Regular rate and rhythm without murmurs, rubs, or gallops. Peripheral pulses 2+ and equal bilaterally. ABDOMINAL: Soft, diffuse tenderness throughout upper abdomen, left upper abdomen, epigastric region, nondistended, no hepatosplenomegaly. Normoactive BS. MUSCULOSKELETAL: Moves all extremities. Strength/ROM intact without gross deformities. SKIN: Warm, dry, normal color. No rashes. NEURO: A&O X3. Speech clear. Cranial nerves II-XII grossly intact. Steady gait. No ataxic movements. PSYCHIATRIC: Appropriate mood and affect. Normal interaction.
--- NOTE | 2022-12-07 00:11 | PC.NURSE ---
This RN assumed care of patient. This RN took patient report from SENAIT Amador.
[2022-12-07] MEDS: SODIUM CHLORIDE 0.9% IV 1,000 ML 999 ML IV CONT (00:19)
[2022-12-07] MEDS: ONDANSETRON INJ 4 MG/2 ML VIAL IV PUSH (00:20)
[2022-12-07] MEDS: BELLADONNA ALK/PHENOB ELIX 10 ML, MAG HYDROX/ALUMINUM HYD/SIMETH 30 ML, LIDOCAINE HCL 2... PO (00:22)
[2022-12-07 00:25] VITALS: BP 152/84; PULSE 95; O2SAT 100
[2022-12-07 02:20] VITALS: BP 145/89; PULSE 84; RESP 16; O2SAT 100
== END 2022-12-07 02:20 | disposition home or self-care (01) ==
PROVIDERS: Emergency Medicine; Emergency Provider Physician Assistant; PCP Family Medicine
DX: K52.9 Noninfective gastroenteritis and colitis, unspecified (principal); K21.9 Gastro-esophageal reflux disease without esophagitis; R73.9 Hyperglycemia, unspecified; E66.9 Obesity, unspecified; Z68.43 Body mass index [BMI] 50.0-59.9, adult; Z86.2 Personal history of diseases of the blood and blood-forming organs and certain disorders involving the immune mechanism; Z87.891 Personal history of nicotine dependence; Z90.49 Acquired absence of other specified parts of digestive tract
CPT/HCPCS: 36415; 74177; 80053; 81001; 81025; 83690; 85025; 87086; 87088; 96361; 96374; 99284; A9270; J2405; J7030; Q9967

== ENCOUNTER 2023-03-26 00:44 | Day surgery (SDC) | payer BC, OTHER, SELFPAY ==
[2023-03-25 15:14] VITALS: BMI 57.1
--- NOTE | 2023-03-25 15:19 | PC.NURSE ---
Report to the Outpatient Waiting Room, entrance under the green pavilion located off [facility], at time 1300 on date 03/26/23. Planned Procedure Time: 1400. Time changes happen often and if your time is changed the preop area will call you the afternoon before. - You and your visitor will be asked to self-screen and do not enter if you have any COVID symptoms. - A mask is optional within the hospital at this time. Patients may have LIGHT BREAKFAST. Take the following medications with a SIP of water the morning of surgery: PRESCRIBED DO NOT STOP ANY OF YOUR OTHER PRESCRIPTION MEDICATIONS PRIOR TO SURGERY ?EXCEPT THE FOLLOWING Medications to discontinue per physician: N/A Date to take last dose: N/A Please no make-up, nail turkish, hairspray, perfume, deodorant, or body powder the day of surgery. No jewelry (including any body piercings) or valuables the day of surgery, leave them at home. Please take a shower or bath the night before, or the morning of, surgery with an antibacterial soap. Wear comfortable, loose fitting clothing. - Jewelry must be removed prior to entering the operating room. Rings and piercings that are not removed may be cut off. - The hospital will not accept responsibility for valuables. - Please leave all valuables, including medications, at home the day of surgery. YOU MAY DRIVE YOURSELF HOME. Follow any additional instructions given to you from your surgeon. If you or anyone in your household have experienced Covid symptoms in the past week, please notify your surgeon or the nurse liaison at the phone number below for possible testing. Telephone instructions given to PT - LORIE LUNA and asked if any additional questions and then verbalized understanding. Patient advised to call surgeon office or pre surgery nurse liaison [phone] if any additional questions.
[2023-03-26] VITALS (7 sets, daily range): BP systolic 120–140; BP diastolic 63–86; PULSE 84–100; RESP 16–20; TEMP 36.9; O2SAT 98–99
--- NOTE | 2023-03-26 11:12 | WPDHPUPDATE1 ---
History and Physical Update Update Date/Time: 03/26/23 11:12 History and Physical has been reviewed, including an updated exam of the patient. There are NO changes in the patient's condition. Risks, benefits, and alternatives have been discussed and questions answered. Patient agrees to proceed with procedure.
[2023-03-26] MEDS: LIDO 1%/EPINEPHRINE 1:100,000 50 ML VIAL 10 ML INFILTRATE (14:07)
[2023-03-26] MEDS: BUPivacaine HCL 0.5% PF 30 ML VIAL INFILTRATE (14:07)
[2023-03-26] MEDS: BACITRACIN OINTMENT 15 GM TUBE 1 APPLIC TOPICAL (14:41)
--- NOTE | 2023-03-26 15:01 | PM.OP ---
Procedure Note - Brief Procedure Note - Brief Date of procedure: 03/26/23 Lt Axillary Epidermal Inclusion Cyst Post-op diagnosis: Same Procedure performed: Excision left axillary epidermal inclusion cyst with 7cm intermediate layered wound closure. Surgeon: Peter nAdrew MD Anesthesia: local Implants: None Estimated blood loss (mL): 10 Drains: No Packing: No Pathology: Yes (Cyst sent to pathology) Complications: No immediate complications Condition: Stable Disposition: PACU
--- NOTE | 2023-03-26 17:00 | W.PM.PROC2 ---
Procedure Note - Detailed Date of Procedure 03/26/23 Pre-op Diagnosis Lt Axillary Epidermal Inclusion Cyst Post-op Diagnosis Same Procedure Performed Excision left axillary epidermal inclusion cyst with 7cm intermediate layered wound closure Surgeon Peter Andrew MD Anesthesia Local Indications Patient is a 28-year-old female who has had chronic intermittent infections and drainage of cysts in her bilateral axilla. She has mild bilateral hidradenitis but the left side is worse than the right side. She has 2 dominant cyst in the left axilla which have been most recently problematic. The 2 cysts are about 2cm apart and to excise both of them at the same time would leave a large wound which may not be able to be closed primarily. For this reason I recommended that she have the 2 cysts removed in a staged fashion and she presents today to removed the larger of the 2 cysts under local anesthetic in the operating room. Findings The cyst in the left axilla excised today measured 4x1x0.5cm. The resulting wound was closed with a 7cm intermediate layered wound closure. Description of Procedure After informed consent was obtained patient brought to the operating room she was placed supine position and then axilla was prepped and draped usual sterile fashion with the left arm abducted above her head. A time-out was then performed correctly identifying the patient as well as procedure performed verifying the site marking. She was not given any perioperative IV antibiotics as there was no IV started. I 1st started by anesthetizing the area around the cyst for local anesthetic effect utilizing 0.5% Marcaine mixed with 1% lidocaine with some epinephrine. Once adequate anesthesia of the area was achieved I then utilized a scalpel to make an elongated elliptical incision to include the area the cyst in all the surrounding chronic fibrotic and chronic inflamed tissue. The excision issues carried deep down through the dermis with the scalpel and then utilizing electrocautery completely excised out the cyst and the surrounding chronic inflamed tissue down to good healthy appearing cutaneous tissue. The specimen measured 4cm in length by 1cm width by 0.5cm in depth he was sent to pathology for examination. Hemostasis was then achieved in the incision utilized electrocautery. It was irrigated sterile saline solution hemostasis was good. A 7cm intermediate layered wound closure was then performed. Interrupted 3-0 Vicryl sutures were placed in subcutaneous tissues. This is then followed by interrupted 3-0 Vicryl sutures placed in vertical mattress fashion approximate the skin edges. The incision closed easily without any tension. The incision was then cleaned and then antibiotic ointment and sterile dressing was applied. The patient tolerated the procedure well no complications. All sponges, needles, and instrument counts were correct at the end procedure. EBL was _10__cc. The patient was awakened and taken to recovery in stable and satisfactory condition. Implants None Estimated Blood Loss 10 Drains No Packing No Pathology Yes ( epidermal inclusion cyst left axilla sent to pathology) Complications No immediate complications Condition Stable Disposition Same day [facility] Billing Surgery - Charge Forward: Surgery Billing
== END 2023-03-26 15:15 | disposition home or self-care (01) ==
PROVIDERS: PCP Family Medicine; Visit Provider Surgery
PROC: (CPT 11404; principal; 2023-03-26 14:00)
DX: L72.8 Other follicular cysts of the skin and subcutaneous tissue (principal); F12.90 Cannabis use, unspecified, uncomplicated; F17.290 Nicotine dependence, other tobacco product, uncomplicated
CPT/HCPCS: 11404; 12032; 88305; A9270

== ENCOUNTER 2023-07-27 08:48 | Outpatient (CLI) | payer BC, OTHER, SELFPAY ==
--- NOTE | ~2023-07-27 | US_ITS ---
EXAMINATION: US soft tissue head and neck DATE: 07/27/2023 09:51 INDICATION: Localized swelling, mass and lump, neck. TECHNIQUE: Multiple grayscale and Doppler ultrasound images of the head and neck were obtained. COMPARISON: None FINDINGS: In the right anterior neck, there is a 1.6 x 0.5 x 0.3 cm hypoechoic subcutaneous mass with tract to the skin. IMPRESSION: 1. 1.6 cm subcutaneous mass in the anterior right neck, likely a sebaceous cyst. Reviewed, dictated and finalized at location A. IMPRESSION: 1. 1.6 cm subcutaneous mass in the anterior right neck, likely a sebaceous cyst .
== END 2023-07-27 08:49 | disposition home or self-care (01) ==
LOC: ANHIMG 08:51
PROVIDERS: PCP Family Medicine; Visit Provider Nurse Practitioner
DX: R22.1 Localized swelling, mass and lump, neck (principal)
CPT/HCPCS: 76536

== ENCOUNTER 2024-01-22 13:28 | Outpatient (CLI) | payer BC, SELFPAY ==
[2024-01-22 18:04] LABS: Basophils Percent Auto 0.2 % (0.2-1.2); Eosinophils Absolute Auto 0.1 K/mm3 (0-0.3); Eosinophils Percent Auto 2.3 % (0-4.4); Hematocrit 39.3 % (37.0-47.0); Hemoglobin 12.2 g/dL (12.0-15.0); Immature Granulocyte Absolute 0.02 K/mm3 (0.00-0.031); Immature Granulocyte Percent A 0.3 % (0-0.5); Immature Platelet Fraction Pct 3.9 % (0.9-11.2); Lymphocytes Absolute Auto 1.57 K/mm3 (0.9-3.2); Lymphocytes Percent Auto 25.9 % (18.3-44.2); Mean Corpuscular Hemoglobin 27.1 pg (26-34); Mean Corpuscular Volume 87.3 fl (80-100); Mean Platelet Volume 11.2 fl (7.4-10.4); Monocytes Absolute Auto 0.4 K/mm3 (0.1-0.6); Monocytes Percent Auto 6.3 % (2.6-8.5); Platelet Count Result 310 k/mm3 (150-375); Red Cell Distribution Width 14.1 % (11.5-14.5); White Blood Count 6.1 K/mm3 (4.5-10.0)
[2024-01-22 18:07] LABS: Iron 55 ug/dL (37-170)
[2024-01-22 18:17] LABS: Percent Iron Saturation 15 % (20-50)
[2024-01-22 18:23] LABS: Alanine Aminotransferase 15 U/L (6-35); Albumin Level 3.9 g/dL (3.5-5.1); Alkaline Phosphatase 63 U/L (38-126); Anion Gap 10 mmol/L (4-12); Aspartate Amino Transferase 34 U/L (14-36); Bilirubin,Total 0.3 mg/dL (0.2-1.3); Blood Urea Nitrogen 7 mg/dL (7-17); Calcium 8.9 mg/dL (8.4-10.2); Carbon Dioxide 25 mmol/L (22-30); Chloride 102 mmol/L (98-107); Cholesterol 135 mg/dL (0-200); Estimated Glomerular Filt Rate > 60; Glucose 94 mg/dL (65-110); HDL Direct 42 mg/dL; Potassium 4.1 mmol/L (3.4-5.0); Sodium 137 mmol/L (137-145); Triglycerides 186 mg/dL (<150)
[2024-01-22 18:34] LABS: LDL Cholesterol Direct 57 mg/dL
[2024-01-22 18:50] LABS: Anisocytosis 1+; Hypochromasia 1+; Ovalocytes 1+; Platelet Estimate Adequate (Adequate); Schistocytes None Seen
[2024-01-22 22:41] LABS: Vitamin D 25 Hydroxy 17.2 ng/mL
== END 2024-01-22 13:29 | disposition home or self-care (01) ==
LOC: ANHGOSHLAB 13:30
PROVIDERS: Obstetrics & Gynecology; PCP Nurse Practitioner; Visit Provider Nurse Practitioner
DX: Z00.00 Encounter for general adult medical examination without abnormal findings (principal); E55.9 Vitamin D deficiency, unspecified; N92.0 Excessive and frequent menstruation with regular cycle; E61.1 Iron deficiency
CPT/HCPCS: 36415; 80053; 80061; 82306; 83540; 83550; 84443; 85025; 85027; 85055

== ENCOUNTER 2024-01-22 14:58 | Emergency (ER) | payer BC, SELFPAY ==
--- NOTE | ~2024-01-22 | CT_ITS ---
CLINICAL INDICATION: Left upper quadrant pain COMPARISON: 12/07/2022 and dating back to 05/14/2015. TECHNIQUE: Multiple contiguous axial images of the abdomen and pelvis were performed following the ad ministration of with 100 mL Omnipaque-350 intravenous contrast The dose-length product (DLP) was 1565.84 mGy-cm. Automated exposure control and iterative reconstruction technique were employed. FINDINGS/OBSERVATIONS: Visualized lower thorax: The bilateral lung bases are clear. The heart is of normal size, without pericardial effusion. Small hiatal hernia is present. Liver: The liver is enlarged measuring 22 cm in longitudinal dimension, and demonstrates diffuse fatty infil tration. Gallbladder and biliary system: The gallbladder is surgically absent. Pancreas: The pancreas enhances homogeneously without ductal dilatation. Spleen: A 15 mm well-circumscribed focus of decreased attenuation is identified along the medial margin of th e spleen, unchanged dating back to 2015. The remainder of the spleen otherwise enhances homogeneously and is not enlarged measuring 10 cm in longitudinal dimension. Kidneys: The bilateral kidneys enhance symmetrically without hydronephrosis or renal calculi. Adrenal glands: Unremarkable. Gastrointestinal tract: Trace fecal stasis within the colon. Appendix: The air-filled appendix is of normal caliber (axial series, image 125) Vasculature: Unremarkable. Lymph nodes: No pathologically enlarged or morphologically suspicious lymph nodes within the retroperitoneum or at the root of the mesentery. Pelvic structures: The bladder is only minimally distended. The uterus is anteverted and anteflexed and otherwise unremarkable. Body wall and musculoskeletal: Small fat-containing umbilical hernia. No significant degenerative disease within the lower thoracic or lumbosacral spine. IMPRESSION: Fatty infiltration of an enlarged liver. Splenic cyst, stable dating back to 2015. No acute intra-abdominal pathology, as detailed above. Reviewed, dictated and finalized at location A. [employer]
[2024-01-22 14:59] VITALS: BP 141/94; PULSE 83; RESP 20; TEMP 36.9; O2SAT 100
--- NOTE | 2024-01-22 15:20 | ED.ABDPAIN ---
HPI - Abdominal Pain General Chief Complaint: Abdominal Pain <UMBERTO Melendrez Last Filed: 01/22/24 15:22> Stated Complaint: LUQ pain, worse with movement, nausea <UMBERTO Melendrez Last Filed: 01/22/24 15:22> Time Seen by Provider: 01/22/24 15:20 <UMBERTO Melendrez Last Filed: 01/22/24 15:22> Focused HPI: This is a 28 year old female that presents to the ER for left upper abdominal pain. Ongoing since yesterday. Reports associated vomiting. Denies fever, diarrhea, dysuria or hematuria. GENERAL: Well-appearing, well-nourished, and in no acute distress. HEAD: Normocephalic, atraumatic. CHEST: Clear to auscultation. ?No respiratory distress. HEART: Regular rate and rhythm.? NEURO: ?Alert and oriented x3. Patient screened in triage and initial orders placed.? ?Additional care and disposition to be based upon?diagnostic testing and treatment. <UMBERTO Melendrez Last Filed: 01/22/24 15:22> Focused HPI: This is a 28 year old female that presents to the ER for left upper abdominal pain. Ongoing since yesterday. Reports associated vomiting. Denies fever, diarrhea, dysuria or hematuria. GENERAL: Well-appearing, well-nourished, and in no acute distress. HEAD: Normocephalic, atraumatic. CHEST: Clear to auscultation. ?No respiratory distress. HEART: Regular rate and rhythm.? NEURO: ?Alert and oriented x3. Patient screened in triage and initial orders placed.? ?Additional care and disposition to be based upon?diagnostic testing and treatment. <Antonieta Pedroza PA-C - Last Filed: 01/22/24 23:41> Source: patient <UMBERTO Arteaga Last Filed: 01/22/24 23:41> Mode of arrival: ambulatory <UMBERTO Arteaga Last Filed: 01/22/24 23:41> Limitations: no limitations <UMBERTO Arteaga Last Filed: 01/22/24 23:41> History of Present Illness HPI narrative: Agree with above HPI. Reports nausea with dry heaving. Reports frequent issues with GERD, is on omeprazole. <Antonieta Pedroza PA-C - Last Filed: 01/22/24 23:41> Related Data Home Medications: Home Medications Medication Instructions Recorded Confirmed omeprazole 20 mg capsule,delayed 20 mg PO DAILY PRN 06/30/23 01/19/24 release <Shefali Fierro PA-C - Last Filed: 01/22/24 15:22> Allergies/Adverse Reactions: Allergies Allergy/AdvReac Type Severity Reaction Status Date / Time No Known Allergies Allergy Verified 01/22/24 15:03 <Shefali Fierro PA-C - Last Filed: 01/22/24 15:22> Review of Systems Review of Systems: All systems reviewed & are unremarkable except as noted in HPI. <Antonieta Pedroza PA-C - Last Filed: 01/22/24 23:41> All systems reviewed & are unremarkable except as noted in HPI and below <Antonieta Pedroza PA-C - Last Filed: 01/22/24 23:41> [facility] Past Medical History Medical History: Medical History Anemia Anxiety and depression Chauhan's palsy Cholelithiasis Gall stones Migraine Obesity <Shefali Fierro PA-C - Last Filed: 01/22/24 15:22> Surgical History Surgical History: Surgical History History of cholecystectomy (~2013) History of excision of epidermal inclusion cyst L axillary 03/26/23 <Shefali Fierro PA-C - Last Filed: 01/22/24 15:22> Family History Family History: Family History Sibling Leukemia Mother Hypertension Depression Grandparent Diabetes mellitus maternal grandparent Hypertension Depression Cerebrovascular accident Father Alcoholism Heart disease Thyroid disease <Shefali Fierro PA-C - Last Filed: 01/22/24 15:22> Social History Social History: Social History Smoking packs per day: 1 Smoking cigarettes per day: 20.0 Years smoked: 2 Smoking pack-years: 2.00 Smoking status: Current every day smoker Tobacco type: e-cigarettes/vaping Smoking end date: 03/09/18 Alcohol intake: never Alcohol use details: occasionnally 2 per month Substance use: former Substance use type: marijuana Other substance usage details: very ocassional smokes it Do You Feel Safe in your Home?: Yes Lack of Transportation: No Lack of Food: Never True Current Housing: I Have Housing Concerned About Future Housing: No Difficulty Paying Gas/Electric Bills: No Difficulty Paying for Meds: No Currently Unemployed: YES Education: High School Diploma/GED Difficulty w/ Childcare or Family Care: No Living arrangements: with family Additional living arrangements comments: /same sex partner Occupation/Education: occupation 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 HEAD: Normocephalic, atraumatic. RESPIRATORY: Airway patent, respirations nonlabored. Clear to auscultation bilaterally, no rales, rhonchi, wheezing. CARDIOVASCULAR: Regular rate and rhythm without murmurs, rubs, or gallops. ABDOMINAL: Soft, mild TTP in L mid and upper abdomen, no rebound, nondistended. Normoactive BS. MUSCULOSKELETAL: Moves all extremities. No gross deformities. SKIN: Warm, dry, normal color. NEURO: A&O X3. Speech clear. PSYCHIATRIC: Appropriate mood and affect. Normal interaction. <Antonieta Pedroza PA-C - Last Filed: 01/22/24 23:41> Course Vital Signs Vital signs: Vital Signs Temperature 98.5 F 01/22/24 14:59 Pulse Rate 83 01/22/24 14:59 Respiratory Rate 20 01/22/24 14:59 Blood Pressure 141/94 H 01/22/24 14:59 Pulse Oximetry 100 01/22/24 14:59 Oxygen Delivery Room Air 01/22/24 14:59 Temperature 97.6 F 01/22/24 17:48 Pulse Rate 80 01/22/24 21:09 Respiratory Rate 17 01/22/24 21:09 Blood Pressure 145/93 H 01/22/24 21:09 Pulse Oximetry 100 01/22/24 21:09 Oxygen Delivery Room Air 01/22/24 14:59 <Shefali Fierro PA-C - Last Filed: 01/22/24 15:22> Vital Signs Temperature 98.5 F 01/22/24 14:59 Pulse Rate 83 01/22/24 14:59 Respiratory Rate 20 01/22/24 14:59 Blood Pressure 141/94 H 01/22/24 14:59 Pulse Oximetry 100 01/22/24 14:59 Oxygen Delivery Room Air 01/22/24 14:59 Temperature 97.6 F 01/22/24 17:48 Pulse Rate 80 01/22/24 21:09 Respiratory Rate 17 01/22/24 21:09 Blood Pressure 145/93 H 01/22/24 21:09 Pulse Oximetry 100 01/22/24 21:09 Oxygen Delivery Room Air 01/22/24 14:59 <Antonieta Pedroza PA-C - Last Filed: 01/22/24 23:41> MDM - Abdominal Pain MDM Narrative Medical decision making narrative: Patient reports 2 day history of left-sided abdominal pain. Reporting nausea with dry heaving. History of acid reflux. Vital signs are stable upon arrival. Patient is in no acute distress. Laboratory studies are unremarkable. No significant abnormalities. UA is clear. CT scan of abdomen/pelvis obtained and without significant abnormalities. Patient given Protonix, Zofran, Pepcid, Bentyl, Tylenol in the ED. On re-evaluation she is feeling much better with supportive therapy. Pain is improved. Feel she is safe for discharge home at this time. Discussed possibility of gastritis versus GERD verses PUD picture. Patient only takes omeprazole occasionally. Will prescribe this to be taken daily. Discussed further lifestyle management of gastritis/GERD. Patient reports she has also previously taken Bentyl and done well with this. Will prescribe this. Recommended close follow-up with PCP for further evaluation. She agrees with plan. Given return precautions. Discharged in stable condition. <Antonieta Pedroza PA-C - Last Filed: 01/22/24 23:41> Medical Records Attestation: I reviewed the patient's medical records. <Antonieta Pedroza PA-C - Last Filed: 01/22/24 23:41> Lab Data Attestation: I reviewed the patient's lab results. <Antonieta Pedroza PA-C - Last Filed: 01/22/24 23:41> Result diagrams: 01/22/24 16:08 01/22/24 16:08 <Shefali Fierro PA-C - Last Filed: 01/22/24 15:22> Labs: Lab Results 01/22/24 Range/Units 16:08 WBC 6.7 (4.5-10.0) K/mm3 RBC 4.41 (4.2-5.4) M/mm3 Hgb 12.2 (12.0-15.0) g/dL Hct 37.7 (37.0-47.0) % MCV 85.5 (80-100) fl MCH 27.7 (26-34) pg MCHC 32.4 (32-36) g/dl RDW 13.8 (11.5-14.5) % Plt Count 335 (150-375) k/mm3 MPV 9.6 (7.4-10.4) fl Immature Gran % (Auto) 0.1 (0-0.5) % Neut % (Auto) 62.2 (45.5-73.1) % Lymph % (Auto) 28.3 (18.3-44.2) % [place] % (Auto) 7.2 (2.6-8.5) % Eos % (Auto) 2.1 (0-4.4) % Baso % (Auto) 0.1 L (0.2-1.2) % Lymph # (Auto) 1.89 (0.9-3.2) K/mm3 [place] # (Auto) 0.5 (0.1-0.6) K/mm3 Eos # (Auto) 0.1 (0-0.3) K/mm3 Baso # (Auto) 0.0 (0.0-0.1) K/mm3 Abs Immat Gran (auto) 0.01 (0.00-0.031) K/mm3 Absolute Neuts (auto) 4.2 (1.3-6.7) K/mm3 Absolute Nucleated RBC 0.000 (0.0-0.012) K/mm3 Nucleated RBC % 0.0 (0.0-0.2) % Sodium 136 L (137-145) mmol/L Potassium 4.3 (3.4-5.0) mmol/L Chloride 101 (98-107) mmol/L Carbon Dioxide 28 (22-30) mmol/L Anion Gap 7 (4-12) mmol/L BUN 7 (7-17) mg/dL Creatinine 0.60 L (0.7-1.0) mg/dL Estim Creat Clear Calc 187 ml/min Estimated GFR > 60 (59 - ) Glucose 90 (65-110) mg/dL Calcium 8.8 (8.4-10.2) mg/dL Total Bilirubin 0.3 (0.2-1.3) mg/dL AST 22 (14-36) U/L ALT 14 (6-35) U/L Alkaline Phosphatase 64 (38-126) U/L Total Protein 8.0 (6.3-8.2) g/dL Albumin 4.0 (3.5-5.1) g/dL Lipase 42 (23-300) U/L Urine Color Yellow (Yellow) Urine Appearance Clear (Clear) Urine pH 6.5 (5.0-9.0) Ur Specific [place] 1.009 (1.001-1.035) Urine Protein Negative (Negative) mg/dL Urine Glucose (UA) Negative (Negative) mg/dL Urine Ketones Negative (Negative) mg/dL Ur Blood (Man) Negative (Negative) Urine Nitrate Negative (Negative) Urine Bilirubin Negative (Negative) Urine Urobilinogen 0.2 (<2.0) mg/dL Leukocyte Esterase Rfl Negative (Negative) JOSE L/UL <Shefali Fierro PA-C - Last Filed: 01/22/24 15:22> Lab Results 01/22/24 Range/Units 16:08 WBC 6.7 (4.5-10.0) K/mm3 RBC 4.41 (4.2-5.4) M/mm3 Hgb 12.2 (12.0-15.0) g/dL Hct 37.7 (37.0-47.0) % MCV 85.5 (80-100) fl MCH 27.7 (26-34) pg MCHC 32.4 (32-36) g/dl RDW 13.8 (11.5-14.5) % Plt Count 335 (150-375) k/mm3 MPV 9.6 (7.4-10.4) fl Immature Gran % (Auto) 0.1 (0-0.5) % Neut % (Auto) 62.2 (45.5-73.1) % Lymph % (Auto) 28.3 (18.3-44.2) % [place] % (Auto) 7.2 (2.6-8.5) % Eos % (Auto) 2.1 (0-4.4) % Baso % (Auto) 0.1 L (0.2-1.2) % Lymph # (Auto) 1.89 (0.9-3.2) K/mm3 [place] # (Auto) 0.5 (0.1-0.6) K/mm3 Eos # (Auto) 0.1 (0-0.3) K/mm3 Baso # (Auto) 0.0 (0.0-0.1) K/mm3 Abs Immat Gran (auto) 0.01 (0.00-0.031) K/mm3 Absolute Neuts (auto) 4.2 (1.3-6.7) K/mm3 Absolute Nucleated RBC 0.000 (0.0-0.012) K/mm3 Nucleated RBC % 0.0 (0.0-0.2) % Sodium 136 L (137-145) mmol/L Potassium 4.3 (3.4-5.0) mmol/L Chloride 101 (98-107) mmol/L Carbon Dioxide 28 (22-30) mmol/L Anion Gap 7 (4-12) mmol/L BUN 7 (7-17) mg/dL Creatinine 0.60 L (0.7-1.0) mg/dL Estim Creat Clear Calc 187 ml/min Estimated GFR > 60 (59 - ) Glucose 90 (65-110) mg/dL Calcium 8.8 (8.4-10.2) mg/dL Total Bilirubin 0.3 (0.2-1.3) mg/dL AST 22 (14-36) U/L ALT 14 (6-35) U/L Alkaline Phosphatase 64 (38-126) U/L Total Protein 8.0 (6.3-8.2) g/dL Albumin 4.0 (3.5-5.1) g/dL Lipase 42 (23-300) U/L Urine Color Yellow (Yellow) Urine Appearance Clear (Clear) Urine pH 6.5 (5.0-9.0) Ur Specific [place] 1.009 (1.001-1.035) Urine Protein Negative (Negative) mg/dL Urine Glucose (UA) Negative (Negative) mg/dL Urine Ketones Negative (Negative) mg/dL Ur Blood (Man) Negative (Negative) Urine Nitrate Negative (Negative) Urine Bilirubin Negative (Negative) Urine Urobilinogen 0.2 (<2.0) mg/dL Leukocyte Esterase Rfl Negative (Negative) JOSE L/UL <UMBERTO Arteaga Last Filed: 01/22/24 23:41> Imaging Data Attestation: I personally reviewed and interpreted this imaging study as follows: <UMBERTO Arteaga Last Filed: 01/22/24 23:41> Radiologist's impression: ITS Impressions Abdomen/Pelvis CT 01/22/24 20:19 IMPRESSION: Fatty infiltration of an enlarged liver. Splenic cyst, stable dating back to 2016. No acute intra-abdominal pathology, as detailed above. <UMBERTO Melendrez Last Filed: 01/22/24 15:22> ITS Impressions Abdomen/Pelvis CT 01/22/24 20:19 IMPRESSION: Fatty infiltration of an enlarged liver. Splenic cyst, stable dating back to 2016. No acute intra-abdominal pathology, as detailed above. <UMBERTO Arteaga Last Filed: 01/22/24 23:41> Discharge Plan Discharge Clinical Impression: Left sided abdominal pain <UMBERTO Melendrez Last Filed: 01/22/24 15:22> Patient Disposition: Home, Self-Care <UMBERTO Melendrez Last Filed: 01/22/24 15:22> Condition: Stable <Shefali Fierro PA-C - Last Filed: 01/22/24 15:22> Instructions: Antibiotic Form, Diet for Stomach Ulcers and Gastritis (ED), GERD (Gastroesophageal Reflux Disease) (ED), Abdominal Pain (ED) <Shefali Fierro PA-C - Last Filed: 01/22/24 15:22> Additional Instructions: Your workup here was reassuring. Your pain may be related to gastritis/acid reflux. Recommend taking omeprazole daily. Utilize Tylenol, Bentyl as needed for further abdominal discomfort. Utilize Zofran as needed for nausea. Follow-up with your primary care doctor for further evaluation if needed. Return to the ED if you experience worsening or severe pain, unable to keep down food or drink, persistent fevers, rectal bleeding, dark black stools, or any other symptoms of concern. <Shefali Fierro PA-C - Last Filed: 01/22/24 15:22> Prescriptions: New dicyclomine 20 mg tablet 20 mg PO TID PRN (Reason: Abdominal Discomfort) Qty: 15 0RF omeprazole 20 mg capsule,delayed release(DR/EC) 20 mg PO DAILY Qty: 30 0RF ondansetron 4 mg tablet,disintegrating 4 mg PO Q8H PRN (Reason: nausea and vomiting) Qty: 15 0RF No Action norgestimate-ethinyl estradiol [Estarylla] 0.25-35 mg-mcg tablet 1 tablet PO DAILY Qty: 84 4RF omeprazole 20 mg capsule,delayed release(DR/EC) 20 mg PO DAILY PRN Rx Instructions: Take around supper time mupirocin 2 % ointment 1 applic topical TID Qty: 15 5RF dicyclomine 20 mg tablet 20 mg PO TID PRN (Reason: Abdominal Discomfort) Qty: 20 0RF <Shefali Fierro PA-C - Last Filed: 01/22/24 15:22> Follow-up/Referrals: Briseyda Alston DO [Primary Care Provider] - <UMBERTO Melendrez Last Filed: 01/22/24 15:22> Time of Disposition: 21:00 <Shefali Fierro PA-C - Last Filed: 01/22/24 15:22> 21:00 <Antonieta Pedroza PA-C - Last Filed: 01/22/24 23:41>
[2024-01-22 16:14] LABS: Basophils Percent Auto 0.1 % (0.2-1.2); Eosinophils Absolute Auto 0.1 K/mm3 (0-0.3); Eosinophils Percent Auto 2.1 % (0-4.4); Hematocrit 37.7 % (37.0-47.0); Hemoglobin 12.2 g/dL (12.0-15.0); Immature Granulocyte Absolute 0.01 K/mm3 (0.00-0.031); Immature Granulocyte Percent A 0.1 % (0-0.5); Lymphocytes Absolute Auto 1.89 K/mm3 (0.9-3.2); Lymphocytes Percent Auto 28.3 % (18.3-44.2); Mean Corpuscular HGB Conc 32.4 g/dl (32-36); Mean Corpuscular Hemoglobin 27.7 pg (26-34); Mean Corpuscular Volume 85.5 fl (80-100); Mean Platelet Volume 9.6 fl (7.4-10.4); Monocytes Absolute Auto 0.5 K/mm3 (0.1-0.6); Monocytes Percent Auto 7.2 % (2.6-8.5); Neutrophils Absolute Auto 4.2 K/mm3 (1.3-6.7); Neutrophils Percent Auto 62.2 % (45.5-73.1); Platelet Count Result 335 k/mm3 (150-375); Red Blood Count 4.41 M/mm3 (4.2-5.4); Red Cell Distribution Width 13.8 % (11.5-14.5); White Blood Count 6.7 K/mm3 (4.5-10.0)
[2024-01-22 16:15] LABS: Add Urine Microscopic? NO; Appearance Urine Clear (Clear); Bilirubin Urine Negative (Negative); Blood Urine Negative (Negative); Color Urine Yellow (Yellow); Glucose Urine UA Negative (Negative); Ketones Urine Negative (Negative); Leukocyte Esterase Ur Negative LEU/UL (Negative); Nitrate Urine Negative (Negative); Protein Urine Negative (Negative); Specific Grav Ur 1.009 (1.001-1.035); Urobilinogen Urine 0.2 mg/dL (<2.0); pH Urine 6.5 (5.0-9.0)
[2024-01-22 16:26] LABS: Alanine Aminotransferase 14 U/L (6-35); Alkaline Phosphatase 64 U/L (38-126); Anion Gap 7 mmol/L (4-12); Aspartate Amino Transferase 22 U/L (14-36); Bilirubin,Total 0.3 mg/dL (0.2-1.3); Blood Urea Nitrogen 7 mg/dL (7-17); Calcium 8.8 mg/dL (8.4-10.2); Carbon Dioxide 28 mmol/L (22-30); Chloride 101 mmol/L (98-107); Estimated CRCL calculation 187 ml/min; Estimated Glomerular Filt Rate > 60; Glucose 90 mg/dL (65-110); Lipase 42 U/L (23-300); Potassium 4.3 mmol/L (3.4-5.0); Sodium 136 mmol/L (137-145)
[2024-01-22 16:57] VITALS: BP 131/86; PULSE 82; RESP 20; TEMP 36.9; O2SAT 98
[2024-01-22] MEDS: ACETAMINOPHEN 500 MG TABLET 1000 MG PO (17:37)
[2024-01-22] MEDS: DICYCLOMINE HCL 10 MG CAPSULE 20 MG PO (17:37)
[2024-01-22] MEDS: ONDANSETRON INJ 4 MG/2 ML VIAL IV PUSH (17:38)
[2024-01-22] MEDS: FAMOTIDINE 20 MG/2 ML VIAL IV PUSH (17:38)
[2024-01-22] MEDS: PANTOPRAZOLE SODIUM IV 40 MG VIAL IV PUSH (17:44)
[2024-01-22 17:48] VITALS: BP 132/85; PULSE 105; RESP 18; TEMP 36.4; O2SAT 100
[2024-01-22 18:29] VITALS: BP 133/71; PULSE 68; RESP 20; O2SAT 100
[2024-01-22 21:09] VITALS: BP 145/93; PULSE 80; RESP 17; O2SAT 100
[2024-01-25 10:02] LABS: BEDSIDEPREGUCG Negative (Negative)
== END 2024-01-22 21:12 | disposition home or self-care (01) ==
PROVIDERS: Physician Assistant; Emergency Provider Physician Assistant; PCP Family Medicine
DX: R10.12 Left upper quadrant pain (principal); E66.01 Morbid (severe) obesity due to excess calories; Z68.43 Body mass index [BMI] 50.0-59.9, adult; Z86.2 Personal history of diseases of the blood and blood-forming organs and certain disorders involving the immune mechanism; Z87.891 Personal history of nicotine dependence; K76.0 Fatty (change of) liver, not elsewhere classified; D73.4 Cyst of spleen; Z79.3 Long term (current) use of hormonal contraceptives
CPT/HCPCS: 36415; 74177; 80053; 81003; 81025; 83690; 85025; 96374; 96375; 99284; A9270; J2405; J2470; Q9967